=== PATIENT | female | born 1985 | race Caucasian/White ===

== ENCOUNTER 2025-10-27 09:43 | Day surgery (SDC) | payer BC ==
[~2025-10-27 09:43] MED LIST: Ondansetron 4 MG/2 ML SDV IVPUSH PRN; Propofol 200 MG/20 ML SDV ONE; fentaNYL 100 MCG/2 ML SDV ONE
[2025-10-27] MEDS: Lactated Ringers 1,000 ML IV SCH (09:56)
[2025-10-27] MEDS ORDERED: Propofol 200 MG/20 ML SDV ONE ×2 (11:53→12:13)
== END 2025-10-27 13:07 | disposition home or self-care (01) ==
LOC: VM.SDS 09:43
PROVIDERS: ATTEND Family Medicine
DX: Z12.11 Encounter for screening for malignant neoplasm of colon (principal); Z79.899 Other long term (current) drug therapy; Z86.0100 Personal history of colon polyps, unspecified
CPT/HCPCS: J2704; J3010; J7120